=== PATIENT | female | born 1980 | race Hispanic/Latino ===

== ENCOUNTER 2019-10-18 13:58 | Emergency (ER) | payer MEDICAID, OTHER ==
[2019-10-18] MEDS ORDERED: ACETAMINOPHEN EXTRA STRENGTH 500 MG TABLET ONE (15:26)
[2019-10-18] MEDS ORDERED: KETOROLAC TROMETHAMINE 60 MG/2 ML VIAL ONE (16:37)
== END 2019-10-18 16:52 | disposition home or self-care (01) ==
LOC: EDH 13:58
DX: S42.001A Fracture of unspecified part of right clavicle, initial encounter for closed fracture (principal); Z98.890 Other specified postprocedural states; Y93.I9 Activity, other involving external motion; Y93.89 Activity, other specified; Y92.488 Other paved roadways as the place of occurrence of the external cause; Y99.8 Other external cause status
CPT/HCPCS: 73030; 73060; 73090; 73100; 81025; 96372; 99285; J1885

== ENCOUNTER 2022-04-08 18:17 | Emergency (ER) | payer OTHER ==
[~2022-04-08] VITALS: Ht 160 cm; Wt 117.9 kg
[2022-04-08 18:43] LABS: APPEARANCE,URINE Clear (CLEAR); BILIRUBIN,URINE Negative (NEGATIVE); COLOR,URINE Yellow (YELLOW); GLUCOSE, URINE (UA) Negative (NEGATIVE); KETONES,URINE Negative (NEGATIVE); LEUKOCYTE ESTERASE ,URINE Moderate (NEGATIVE); NITRATE,URINE Negative (NEGATIVE); OCCULT BLOOD,URINE Trace (NEGATIVE); PH,URINE 5.5 (5.0-8.0); PROTEIN,URINE Trace mg/dL (NEGATIVE); UROBILINOGEN,URINE 0.2 mg/dL (0.2-1.0)
[2022-04-08 18:46] LABS: HCG,QUALITATIVE URINE NEGATIVE (NEGATIVE)
[2022-04-08 18:54] LABS: BACTERIA,URINE Few /HPF (None Seen); MUCUS,URINE Few LPF (None Seen); SQUAMOUS EPITHELIAL CELL,UR Moderate /HPF (0-2)
[2022-04-08] MEDS ORDERED: MACR100 PO (19:02)
[2022-04-08] MEDS ORDERED: LIDOCAINE HCL 1% 10 ML VIAL ONE (19:13)
[2022-04-08 19:23] VITALS: BP 135/82
[2022-04-08] MEDS ORDERED: CEFTRIAXONE 1G VIAL IM ONE (19:30)
== END 2022-04-08 19:28 | disposition home or self-care (01) ==
LOC: EDH 18:17
DX: N39.0 Urinary tract infection, site not specified (principal); Z68.42 Body mass index [BMI] 45.0-49.9, adult; E66.9 Obesity, unspecified
CPT/HCPCS: 99283; 87088; 81001; 81025; 96372; J0696; J3490

== ENCOUNTER 2022-05-20 21:26 | Emergency (ER) | payer OTHER ==
[~2022-05-20] VITALS: Ht 165.1 cm; Wt 112.5 kg
[~2022-05-20 21:26] MED LIST: MACR100 PO
[2022-05-20 21:52] VITALS: BP 126/73
[2022-05-20 22:15] LABS: BASOPHILS % (AUTO) 0.5 % (0.0-5.0); EOSINOPHILS % (AUTO) 2.4 % (0.0-8.0); HEMATOCRIT 39.9 % (36-48); LYMPHOCYTES % (AUTO) 25.1 % (21.0-51.0); MEAN CORPUSCULAR HEMOGLOBIN 28.9 pg (27.0-33.0); MEAN CORPUSCULAR HGB CONC 32.8 g/dL (32.0-36.0); MEAN CORPUSCULAR VOLUME 88.1 fL (79-99); MONOCYTES % (AUTO) 5.4 % (3.0-13.0); NEUTROPHILS % (AUTO) 66.2 % (40.0-77.0); PLATELET COUNT (AUTO) 300 K/uL (130-400); RED BLOOD CELL COUNT(AUTO) 4.53 MIL/uL (4.00-5.50); RED CELL DISTRIBUTION WIDTH 13.4 % (11.0-15.5); WHITE BLOOD COUNT (AUTO) 13.3 K/uL (4.8-10.8)
[2022-05-20 22:22] LABS: APPEARANCE,URINE CLEAR (CLEAR); BILIRUBIN,URINE NEGATIVE (NEGATIVE); COLOR,URINE YELLOW (YELLOW); GLUCOSE, URINE (UA) NEGATIVE (NEGATIVE); KETONES,URINE 5 mg/dL (NEGATIVE); LEUKOCYTE ESTERASE ,URINE NEGATIVE (NEGATIVE); NITRATE,URINE NEGATIVE (NEGATIVE); OCCULT BLOOD,URINE MODERATE (NEGATIVE); PROTEIN,URINE NEGATIVE (NEGATIVE); UROBILINOGEN,URINE 0.2 mg/dL (0.2-1.0)
[2022-05-20 22:26] LABS: HCG,QUALITATIVE URINE NEGATIVE (NEGATIVE)
[2022-05-20 22:34] LABS: BACTERIA,URINE Rare /HPF (None Seen); MUCUS,URINE Rare LPF (None Seen); RBC,URINE 26-50 /HPF (0-1); SQUAMOUS EPITHELIAL CELL,UR Rare /HPF (0-2); WBC,URINE 0-1 /HPF (0-1)
[2022-05-20 22:44] LABS: ALBUMIN 3.8 g/dL (3.5-5.0); CREATININE 0.5 mg/dL (0.5-1.5); TOTAL PROTEIN, SERUM 7.8 g/dL (6.0-8.3)
[2022-05-20] MEDS ORDERED: CYCL10TA16 PO (23:41)
== END 2022-05-20 23:48 | disposition home or self-care (01) ==
LOC: EDH 21:26
DX: M79.661 Pain in right lower leg (principal); Z79.899 Other long term (current) drug therapy; E66.9 Obesity, unspecified; Z68.41 Body mass index [BMI] 40.0-44.9, adult
CPT/HCPCS: 36415; 80053; 81001; 81025; 85025; 93971

== ENCOUNTER 2022-06-29 21:20 | Emergency (ER) | payer OTHER ==
[~2022-06-29] VITALS: Ht 162.6 cm; Wt 117.5 kg
[~2022-06-29 21:20] MED LIST changes: +CYCL10TA16 PO
[2022-06-29] MEDS ORDERED: DIPHENHYDRAMINE HCL 25 MG CAPSULE ONE (21:57)
[2022-06-29] MEDS ORDERED: ACETAMINOPHEN 500 MG TABLET ONE (21:57)
[2022-06-29] MEDS ORDERED: DIPHENHYDRAMINE HCL 25 MG CAPSULE PO ONE (22:00)
[2022-06-29] MEDS ORDERED: ACETAMINOPHEN 500 MG TABLET PO ONE (22:00)
[2022-06-29] MEDS ORDERED: D-ME1POW16 PO (22:49)
[2022-06-29] MEDS ORDERED: IBUP-2071 PO (22:49)
[2022-06-29 22:57] VITALS: BP 123/71
== END 2022-06-29 23:08 | disposition home or self-care (01) ==
LOC: EDH 21:20
DX: H92.01 Otalgia, right ear (principal); B34.9 Viral infection, unspecified; E66.01 Morbid (severe) obesity due to excess calories; Z68.41 Body mass index [BMI] 40.0-44.9, adult; Z98.890 Other specified postprocedural states
CPT/HCPCS: 99283; 87804 ×2; Q0163